=== PATIENT | male | born 1950 | race Caucasian/White ===

== ENCOUNTER 2022-04-23 07:36 | Day surgery (SDC) | payer OTHER, MEDICARE ==
[2022-04-21 16:45] VITALS: BMI 24.9
[2022-04-23] MEDS ORDERED: TROPICAMIDE 1% OPHTH SOLN 15 ML BOTTLE ONE (07:51)
[2022-04-23] MEDS ORDERED: CIPROFLOXACIN 0.3% EYE DROPS 5 ML BOTTLE ONE (07:51)
[2022-04-23] MEDS ORDERED: PHENYLEPHRINE 2.5% OPHTH SOLN 15 ML BOTTLE ONE (07:51)
[2022-04-23] MEDS ORDERED: CYCLOPENTOLATE 2% OPHTH SOLN 2 ML BOTTLE ONE (07:51)
[2022-04-23] MEDS ORDERED: CYCLOPENTOLATE 2% OPHTH SOLN 2 ML BOTTLE OS ONE ×3 (07:55→08:05)
[2022-04-23] MEDS ORDERED: PHENYLEPHRINE 2.5% OPHTH SOLN 15 ML BOTTLE OS ONE ×3 (07:55→08:05)
[2022-04-23] MEDS ORDERED: CIPROFLOXACIN 0.3% EYE DROPS 5 ML BOTTLE OS ONE ×2 (07:55→08:00)
[2022-04-23] MEDS ORDERED: TROPICAMIDE 1% OPHTH SOLN 15 ML BOTTLE OS ONE ×3 (07:55→08:05)
[2022-04-23] MEDS ORDERED: CIPROFLOXACIN HCL 0.3% OPHTH 2.5ML BOTTLE OS ONE (08:05)
[2022-04-23] MEDS ORDERED: MIDAZOLAM HCL 2 MG/2 ML SINGLE DOSE VIAL ONE ×3 (09:05→10:23)
[2022-04-23] MEDS ORDERED: BSS (NA/CA/MG/K) BALANCED SALT SOLUTION OPHTH SOLN 15 ML BOTTLE ONE (09:17)
[2022-04-23] MEDS ORDERED: LIDOCAINE 1% P/F 10 MG/ML VIAL ONE (09:17)
[2022-04-23] MEDS ORDERED: TETRACAINE 0.5% OPHTH SOLN 2 ML BOTTLE ONE (09:17)
[2022-04-23] MEDS ORDERED: CARBACHOL 0.01% INTRA-OCULAR 1.5 ML VIAL ONE (09:18)
[2022-04-23] MEDS ORDERED: NEO/POLYMYX B SULF/DEXAMETH OPHTHALMIC 5ML BOTTLE ONE (09:18)
[2022-04-23] MEDS ORDERED: PROPOFOL 20 ML ONE (10:34)
[2022-04-23] MEDS: MANNITOL 25% 12.5 GM/50 ML VIAL IVPB ONE ×7 (10:55→12:55)
[2022-04-23] MEDS ORDERED: ATROPINE SO4 1% OPHTH SOLN 5 ML BOTTLE ONE (11:50)
[2022-04-23] MEDS ORDERED: ACETAMINOPHEN 325 MG TABLET (FP) ONE (12:22)
[2022-04-23] MEDS ORDERED: ACETAMINOPHEN 325 MG TABLET (FP) PO PRN (12:31)
[2022-04-23 13:22] VITALS: RESP 18
[2022-04-23 13:53] VITALS: BP 131/65; PULSE 64; TEMP 97.8
== END 2022-04-23 13:45 | disposition home or self-care (01) ==
LOC: FASU 07:36
PROVIDERS: ATTEND Ophthalmology
PROC: 08RK3JZ Replacement of Left Lens with Synthetic Substitute, Percutaneous Approach (ICD-10-PCS; principal; 2022-04-23 09:41)
DX: H26.8 Other specified cataract (principal)
CPT/HCPCS: 66984; V2632; 94760

== ENCOUNTER 2022-06-11 08:38 | Day surgery (SDC) | payer OTHER, MEDICARE ==
[2022-06-10 14:05] VITALS: BMI 24.9
[2022-06-11] MEDS ORDERED: MANNITOL 25% 12.5 GM/50 ML VIAL IVPB ONE (08:39)
[2022-06-11] MEDS ORDERED: CARBACHOL 0.01% INTRA-OCULAR 1.5 ML VIAL ONE (08:51)
[2022-06-11] MEDS ORDERED: LIDOCAINE 1% P/F 10 MG/ML VIAL ONE (08:51)
[2022-06-11] MEDS ORDERED: BSS (NA/CA/MG/K) BALANCED SALT SOLUTION OPHTH SOLN 15 ML BOTTLE ONE (08:51)
[2022-06-11] MEDS ORDERED: TETRACAINE 0.5% OPHTH SOLN 2 ML BOTTLE ONE (08:51)
[2022-06-11] MEDS ORDERED: NEO/POLYMYX B SULF/DEXAMETH OPHTHALMIC 5ML BOTTLE ONE (08:51)
[2022-06-11] MEDS ORDERED: TROPICAMIDE 1% OPHTH SOLN 15 ML BOTTLE ONE (09:07)
[2022-06-11] MEDS ORDERED: CYCLOPENTOLATE 2% OPHTH SOLN 2 ML BOTTLE ONE (09:07)
[2022-06-11] MEDS ORDERED: PHENYLEPHRINE 2.5% OPTHALMIC DROP 2ML BOTTLE ONE (09:07)
[2022-06-11] MEDS ORDERED: CIPROFLOXACIN 0.3% EYE DROPS 5 ML BOTTLE ONE (09:07)
[2022-06-11 09:32] VITALS: BP 137/69; PULSE 62; RESP 16; TEMP 97.6
== END 2022-06-11 09:45 | disposition home or self-care (01) ==
LOC: FASU 08:38
PROVIDERS: ATTEND Ophthalmology
PROC: 08RJ3JZ Replacement of Right Lens with Synthetic Substitute, Percutaneous Approach (ICD-10-PCS; principal; 2022-06-11)
DX: Z53.8 Procedure and treatment not carried out for other reasons (principal); H26.8 Other specified cataract

== ENCOUNTER 2022-06-18 07:38 | Day surgery (SDC) | payer OTHER, MEDICARE ==
[2022-06-12 16:19] VITALS: BMI 24.9
[2022-06-18] MEDS ORDERED: PHENYLEPHRINE 2.5% OPHTH SOLN 15 ML BOTTLE OD ONE ×3 (07:50→08:00)
[2022-06-18] MEDS ORDERED: CYCLOPENTOLATE 2% OPHTH SOLN 2 ML BOTTLE OD ONE ×2 (07:50→07:55)
[2022-06-18] MEDS ORDERED: TROPICAMIDE 1% OPHTH SOLN 15 ML BOTTLE OD ONE ×2 (07:55→08:05)
[2022-06-18] MEDS ORDERED: CYCLOPENTOLATE 2% OPHTH SOLN 2 ML BOTTLE ONE (07:57)
[2022-06-18] MEDS ORDERED: CIPROFLOXACIN 0.3% EYE DROPS 5 ML BOTTLE ONE (07:57)
[2022-06-18] MEDS ORDERED: TROPICAMIDE 1% OPHTH SOLN 15 ML BOTTLE ONE (07:57)
[2022-06-18] MEDS ORDERED: PHENYLEPHRINE 2.5% OPTHALMIC DROP 2ML BOTTLE ONE (07:58)
[2022-06-18] MEDS ORDERED: CIPROFLOXACIN 0.3% EYE DROPS 5 ML BOTTLE OD ONE ×2 (08:00→08:05)
[2022-06-18] MEDS ORDERED: CARBACHOL 0.01% INTRA-OCULAR 1.5 ML VIAL ONE (08:56)
[2022-06-18] MEDS ORDERED: BSS (NA/CA/MG/K) BALANCED SALT SOLUTION OPHTH SOLN 15 ML BOTTLE ONE (08:56)
[2022-06-18] MEDS ORDERED: NEO/POLYMYX B SULF/DEXAMETH OPHTHALMIC 5ML BOTTLE ONE (08:56)
[2022-06-18] MEDS ORDERED: MANNITOL IVPB ONE (09:00)
[2022-06-18] MEDS ORDERED: MIDAZOLAM HCL 2 MG/2 ML SINGLE DOSE VIAL ONE ×3 (10:57→11:21)
[2022-06-18 12:03] VITALS: TEMP 97.5
[2022-06-18 12:30] VITALS: RESP 18
[2022-06-18 12:58] VITALS: BP 139/70; PULSE 58
== END 2022-06-18 12:50 | disposition home or self-care (01) ==
LOC: FASU 07:38
PROVIDERS: ATTEND Ophthalmology
PROC: 08RJ3JZ Replacement of Right Lens with Synthetic Substitute, Percutaneous Approach (ICD-10-PCS; principal; 2022-06-18 11:05)
DX: H26.8 Other specified cataract (principal)
CPT/HCPCS: 94760